=== PATIENT | male | born 1970 ===

== ENCOUNTER 2020-10-17 22:13 | Emergency (ER) | payer SELFPAY ==
[~2020-10-17] VITALS: Ht 188 cm; Wt 103.0 kg
[~2020-10-17 22:13] MED LIST: PENICILLIN VK 500MG TABLET PO ONE
[2020-10-17 22:15] VITALS: BP 142/85
[2020-10-17] MEDS ORDERED: PENICILLIN VK 500MG TABLET ONE (23:47)
[2020-10-17] MEDS ORDERED: KETOROLAC 30 MG/1 ML ONE (23:47)
--- NOTE | 2020-10-17 23:55 | NUR ---
MEDICATED PER ORDER, DC HOME WITH INSTRUCT RX AND REFERRALS. PT VERBALIZES UNDERSTANDING OF INSTRUCT AND F/U. TO RETURN TO ER IF WORSE OR CONCENRS.
[2020-10-18] MEDS ORDERED: KETOROLAC 30 MG/1 ML IM ONE
== END 2020-10-18 00:02 | disposition home or self-care (01) ==
LOC: ED 23:00
DX: K02.9 Dental caries, unspecified (principal); R51.9 Headache, unspecified; F17.210 Nicotine dependence, cigarettes, uncomplicated; Z72.9 Problem related to lifestyle, unspecified
CPT/HCPCS: 96372; 99283; 99406; J1885